=== PATIENT | male | born 1985 | race African-American/Black ===

== ENCOUNTER 2019-02-25 03:47 | Emergency (ER) | payer MEDICAID ==
[~2019-02-25] VITALS: Ht 188 cm; Wt 116.6 kg
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
[2019-02-25 04:12] LABS: BASO % 1 % (0-3); EOS % 0 % (0-3); HEMATOCRIT 40.4 % (39.0-53.0); LYMPH % 12 % (24-48); MEAN CORPUSCULAR HEMOGLOBIN 30 pg (25-35); MEAN CORPUSCULAR HGB CONC 32 g/dL (31-37); MEAN CORPUSCULAR VOLUME 92 fL (79-100); MONO # 0.6 x10^3/uL (0.0-1.1); MONO % 7 % (0-9); NEUT # 6.5 x10^3/uL (1.8-7.7); NEUT % 80 % (31-73); PLATELET COUNT 262 x10^3/uL (140-400); RED BLOOD COUNT 4.37 x10^6/uL (4.30-5.70); RED CELL DISTRIBUTION WIDTH 14.1 % (11.5-14.5); WHITE BLOOD COUNT 8.1 x10^3/uL (4.0-11.0)
[2019-02-25 04:19] LABS: PROTHROMBIN TIME PATIENT 13.5 SEC (11.7-14.0)
[2019-02-25 04:22] LABS: CREATININE 1.3 mg/dL (0.7-1.3); GFR 63.6; POTASSIUM 3.6 mmol/L (3.5-5.1)
[2019-02-25 04:26] LABS: ACETAMIN < 2 mcg/ml (10-30); ETHANOL < 10 mg/dL (0-10); SALIC < 2.8 mg/dL (2.8-20.0)
[2019-02-25] MEDS ORDERED: FAMOTIDINE 20 MG/2 ML VIAL IVP ONE (04:30)
[2019-02-25 04:37] LABS: ALBUMIN 4.2 g/dL (3.4-5.0); ALBUMIN/GLOBULIN RATIO 1.1 (1.0-1.7); MAGNESIUM 1.8 mg/dL (1.8-2.4); TOTAL BILIRUBIN 0.3 mg/dL (0.2-1.0); TOTAL PROTEIN 8.2 g/dL (6.4-8.2)
--- NOTE | 2019-02-25 04:39 | RAD ---
CHEST AP ONLY INDICATION: Altered mental status. COMPARISON STUDY: None. FINDINGS: Lungs: Low lung volume. No pulmonary mass or consolidation. The tracheobronchial tree and hilar structures are normal. Pleura: No pleural effusion or pneumothorax. Heart and Mediastinum: The cardiomediastinal silhouette is normal. The great vessels of the thorax are normal. IMPRESSION: Low lung volume. No focal airspace disease. Electronically signed by: Davon Steve MD (02/25/2019 4:37 AM) [facility]
--- NOTE | 2019-02-25 04:40 | RAD ---
CT HEAD WO CONTRAST Date: 02/25/2019 4:02 AM Clinical Indication: Altered mental status Comparison: None. Technique: 5 mm axial tomographic images were obtained of the head without contrast. These were viewed on brain and bone windows. One or more of the following dose reduction techniques were utilized: Automated exposure control (AEC), Adjustment of mA and/or kV according to patient size, Use of iterative reconstruction technique such as ASiR, CT scan done according to ALARA and image gently/image wisely Findings: The brain parenchyma is normal in attenuation. No intra- or extra-axial mass or fluid collection. No acute hemorrhage. The ventricles are normal in size, shape, and morphology. The mason-white matter junction is normal. The subarachnoid cisterns are patent. Left maxillary sinus mucosal thickening. The visualized portions of the orbits and globes are normal. The mastoid air cells are clear. The refrigeration brazer/solderer topogram shows no lytic lesion or fracture. Impression: No acute intracranial process. Electronically signed by: Davon Steve MD (02/25/2019 4:38 AM) [facility]
[2019-02-25] MEDS ORDERED: MULTIVIT INFUSN,ADULT 4,VIT K 10 ML, THIAMINE INJ 100 MG, FOLIC ACID INJ 1 MG in IV NOR... IV ONE (05:00)
[2019-02-25 05:04] LABS: BILIRUBIN,URINE NEGATIVE (NEG); COLOR,URINE YELLOW; NITRITE,URINE NEGATIVE (NEG); PROTEIN,URINE NEGATIVE (NEG-TRACE); UROBILINOGEN,URINE 0.2 mg/dL (0.2 mg/dL)
[2019-02-25 05:11] LABS: BARBITURATES NEG (NEG); BENZODIAZEPINES NEG (NEG); CANNABINOIDS POS (NEG); COCAINE POS (NEG); METHADONE NEG (NEG); OPIATES NEG (NEG); PHENCYCLIDINE POS (NEG)
[2019-02-25 05:13] LABS: BACTERIA,URINE 0 /HPF (0-FEW); CLARITY,URINE CLEAR; RBC,URINE RARE /HPF (0-2); SQUAMOUS EPITHELIAL CELL,UR OCC /LPF; WBC,URINE 0 /HPF (0-4)
[2019-02-25 05:15] LABS: AMPHETAMINE/METHAMPHETAMINE POS (NEG)
--- NOTE | 2019-02-25 11:13 | EKG ---
[facility] [address] [place] [address] Test Date: 2019-02-25 Test Time: 03:57:13 Pat Name: NATE CHAPMAN Department: Room: Gender: M Laminator: : 1985 Requested By: GRIFFIN POLK Order Number: [id number] Reading MD: Measurements Intervals [place] Rate: 91 P: -1 ID: [id number] QRS: 53 QRSD: 92 T: 31 QT: 334 QTc: 412 Interpretive Statements SINUS RHYTHM LEFT ATRIAL ABNORMALITY INCOMPLETE RIGHT BUNDLE BRANCH BLOCK ST & T ABNORMALITY, CONSIDER RECENT INFERIOR MYOCARDIAL OR PERICARDIAL DAMAGE ABNORMAL ECG RI6.01 No previous ECG available for comparison
[2019-02-25 11:43] VITALS: BP 132/82
--- NOTE | 2019-02-25 12:26 | EKG ---
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
== END 2019-02-25 12:38 | disposition short-term general hospital (02) ==
LOC: ER 03:47
DX: T54.92XA Toxic effect of unspecified corrosive substance, intentional self-harm, initial encounter (principal); R41.82 Altered mental status, unspecified; F15.10 Other stimulant abuse, uncomplicated; F16.10 Hallucinogen abuse, uncomplicated; E87.2 Acidosis; F20.9 Schizophrenia, unspecified; F43.10 Post-traumatic stress disorder, unspecified; Y92.89 Other specified places as the place of occurrence of the external cause
CPT/HCPCS: 36415; 70450; 71045; 80053; 80307; 80329; 81001; 82553; 83605; 83690; 83735; 84484; 85025; 85610; 85730; 93005; 96365; 96375; 99285; G0480; J2060; J3490; J7030

== ENCOUNTER 2019-04-04 10:05 | Emergency (ER) | payer MEDICAID ==
[~2019-04-04] VITALS: Ht 193 cm; Wt 246.0 kg
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
[2019-04-04] MEDS ORDERED: NAPR-683 PO (11:09)
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
[2019-04-04] MEDS ORDERED: HYDROcodone/APAP 5/325MG 1 TAB TABLET PO ONE (11:15)
[2019-04-04 11:28] VITALS: BP 123/75
--- NOTE | 2019-04-04 12:08 | EKG ---
[facility] [address] [place] [address] Test Date: 2019-04-04 Test Time: 10:15:40 Pat Name: NATE CHAPMAN Department: Room: Gender: M [employer]: : 1985 Requested By: ROSIBEL ESTRADA Order Number: [id number] Reading MD: Measurements Intervals [place] Rate: 71 P: 4 [place]: 178 QRS: 59 QRSD: 90 T: 29 QT: 362 QTc: 398 Interpretive Statements SINUS RHYTHM INCOMPLETE RIGHT BUNDLE BRANCH BLOCK QRS(T) CONTOUR ABNORMALITY CONSIDER ANTEROSEPTAL MYOCARDIAL DAMAGE POSSIBLY ABNORMAL ECG RI6.01 No previous ECG available for comparison
== END 2019-04-04 11:32 | disposition home or self-care (01) ==
LOC: ER 10:05
DX: S21.111A Laceration without foreign body of right front wall of thorax without penetration into thoracic cavity, initial encounter (principal); F20.9 Schizophrenia, unspecified; F43.12 Post-traumatic stress disorder, chronic; F13.90 Sedative, hypnotic, or anxiolytic use, unspecified, uncomplicated; F17.200 Nicotine dependence, unspecified, uncomplicated; Z98.890 Other specified postprocedural states; X99.1XXA Assault by knife, initial encounter; Y93.89 Activity, other specified; Y92.89 Other specified places as the place of occurrence of the external cause; Y99.8 Other external cause status
CPT/HCPCS: 12001; 71046; 93005; 99284